=== PATIENT | female | born 1985 | race Caucasian/White ===

== ENCOUNTER 2017-06-03 17:21 | Outpatient (CLI) | payer OTHER ==
[~2017-06-03] VITALS: Ht 162.6 cm; Wt 95.9 kg
[~2017-06-03 17:21] MED LIST: ANXIETY MED; FLEXERIL10 MG PO; Feosol PO; IMITREX50 MG PO; LORAZEPAM0.5 MG PO; MOTRIN600 M1 PO; MOTRIN800 MG PO; Motrin PO; NAPROSYN500 MG PO; NATALCARE RX1 TABLET PO; NOHOMEMEDS; ONDANSETRON HCL4 M1; PRENATAL PLUS1 EAC3 PO; PROMETHAZINE HC25 M1; REGLAN10 MG PO; TAMIFLU75 MG PO; ZOFRAN ODT4 MG PO; ZOFRAN PO; Zofran PO
[2017-06-03 17:40] VITALS: BP 122/80
[2017-06-03] MEDS ORDERED: FLINTSTONES M100 MCG PO (17:48)
[2017-06-03 19:21] VITALS: BP 113/67
== END 2017-06-03 20:00 | disposition home or self-care (01) ==
LOC: LDRP-OP → 2WEST 17:22 → LDRP-OP 08-01 11:00
DX: O36.8130 Decreased fetal movements, third trimester, not applicable or unspecified (principal); O47.03 False labor before 37 completed weeks of gestation, third trimester; O44.43 Low lying placenta NOS or without hemorrhage, third trimester; Z3A.36 36 weeks gestation of pregnancy
CPT/HCPCS: 59025; G0378

== ENCOUNTER 2017-06-12 08:19 | Inpatient (IN) | payer OTHER ==
[~2017-06-12] VITALS: Ht 162.6 cm; Wt 96.4 kg
[~2017-06-12 08:19] MED LIST changes: +FLINTSTONES GU1 EACH PO; +FLINTSTONES M100 MCG PO
[2017-06-12 09:57] VITALS: BP 123/77
[2017-06-12 10:14] LABS: EOSINOPHIL (%) 0.2 % (0-5); HEMATOCRIT 35.6 % (36.0-46.0); IMMATURE GRANULOCYTE (%) 0.5 % (0.0-0.7); IMMATURE GRANULOCYTE COUNT 0.1 K/uL; INSTRUMENT ABS NEUTROPHIL CT 9.1 K/uL; LYMPHOCYTE COUNT 1.5 K/uL (1.0-2.8); MCH 29.6 PG (29.0-34.0); MCHC 33.1 G/DL (30.0-36.0); MCV 89.4 FL (83-99); MEAN PLAT.VOLUME 11.1 uM^3 (9.5-12.4); MONOCYTE (%) 5.3 % (3-12); MONOCYTE COUNT 0.6 K/uL (0-0.8); NEUTROPHIL (%) 80.1 % (45-76); NEUTROPHIL COUNT 9.1 K/uL (1.8-6.4); PLATELET COUNT 163 K/uL (156-360); RBC DIS.WIDTH-CV 14.2 % (11.8-14.6); RBC DIS.WIDTH-SD 45.5 % (39-53); RED BLOOD COUNT 3.98 M/uL (3.80-5.20); WHITE BLOOD COUNT 11.3 K/uL (4.1-10.2)
[2017-06-12 14:49] VITALS: BP 125/66
[2017-06-12 15:59] VITALS: BP 108/57
[2017-06-12 18:15] VITALS: BP 100/62
[2017-06-12 20:46] VITALS: BP 89/50
[2017-06-13 00:10] VITALS: BP 96/50
[2017-06-13 03:05] VITALS: BP 100/57
[2017-06-13 07:35] VITALS: BP 100/55
[2017-06-13 07:50] LABS: EOSINOPHIL (%) 0.2 % (0-5); HEMATOCRIT 30.4 % (36.0-46.0); IMMATURE GRANULOCYTE (%) 0.5 % (0.0-0.7); IMMATURE GRANULOCYTE COUNT 0.1 K/uL; INSTRUMENT ABS NEUTROPHIL CT 9.6 K/uL; LYMPHOCYTE COUNT 2.1 K/uL (1.0-2.8); MCH 30.3 PG (29.0-34.0); MCHC 33.2 G/DL (30.0-36.0); MCV 91.3 FL (83-99); MEAN PLAT.VOLUME 11.1 uM^3 (9.5-12.4); MONOCYTE (%) 6.4 % (3-12); MONOCYTE COUNT 0.8 K/uL (0-0.8); NEUTROPHIL COUNT 9.6 K/uL (1.8-6.4); PLATELET COUNT 151 K/uL (156-360); RBC DIS.WIDTH-CV 14.3 % (11.8-14.6); RBC DIS.WIDTH-SD 47.8 % (39-53); RED BLOOD COUNT 3.33 M/uL (3.80-5.20); WHITE BLOOD COUNT 12.6 K/uL (4.1-10.2)
[2017-06-13 10:36] VITALS: BP 100/59
[2017-06-13 15:07] VITALS: BP 108/54
[2017-06-14 03:37] VITALS: BP 98/66
[2017-06-14 07:19] VITALS: BP 109/63
[2017-06-14] MEDS ORDERED: ENDOCET 5-3251 EACH PO (09:32)
[2017-06-14] MEDS ORDERED: IBUPROFEN800 MG PO (09:32)
[2017-06-14 10:52] VITALS: BP 99/58
== END 2017-06-14 13:10 | disposition home or self-care (01) | DRG 765 ==
LOC: 2SOUTH 08:19 → 2WEST 08:44 → 2SOUTH 08:54 → 2WEST 06-14 13:10
PROVIDERS: Obstetrics & Gynecology Obstetrics
DX: O44.43 Low lying placenta NOS or without hemorrhage, third trimester (principal); O99.354 Diseases of the nervous system complicating childbirth; O99.214 Obesity complicating childbirth; E66.9 Obesity, unspecified; Z3A.37 37 weeks gestation of pregnancy; Z37.0 Single live birth; G47.30 Sleep apnea, unspecified; Z30.2 Encounter for sterilization; J45.909 Unspecified asthma, uncomplicated; O99.52 Diseases of the respiratory system complicating childbirth; K21.9 Gastro-esophageal reflux disease without esophagitis; O71.89 Other specified obstetric trauma; F41.9 Anxiety disorder, unspecified; G43.909 Migraine, unspecified, not intractable, without status migrainosus; O99.62 Diseases of the digestive system complicating childbirth; O99.344 Other mental disorders complicating childbirth; Z68.36 Body mass index [BMI] 36.0-36.9, adult; Z88.5 Allergy status to narcotic agent; Z80.1 Family history of malignant neoplasm of trachea, bronchus and lung; Z80.3 Family history of malignant neoplasm of breast; Z80.41 Family history of malignant neoplasm of ovary; Z82.49 Family history of ischemic heart disease and other diseases of the circulatory system; Z83.3 Family history of diabetes mellitus
CPT/HCPCS: 85025; 86850; 86900; 86901; 88302; J0690; J1100; J1885; J2274; J2405; J3010; J7120